=== PATIENT | male | born 1945 | race Caucasian/White ===

== ENCOUNTER 2016-10-03 12:38 | Day surgery (SDC) | payer MEDICARE, OTHER ==
--- NOTE | ~2016-10-03 | EGD ---
EGD REPORT [facility] [address] [address] NAME: SHAILA MOJICA : 43 [place]US : [place] [facility] [place] [id number] AGE: 71 ADM/REG DATE : 10/03/16 MR#: [id number] REPORT SERV DATE: 10/03/16 DICTATED BY: RITCHIE BOWDEN DATE: 10/03/16 REPORT STATUS : Draft TRANSCRIBED BY: [employer] DATE: 10/03/16 [facility] Patient Name: Shaila Mojica Date of : 1945 Attending MD: RITCHIE BOWDEN MD Procedure Date No Time: 10/03/2016 Procedure: Upper GI endoscopy Indications: Dysphagia, Gastro-esophageal reflux disease Referring MD: Jenise Boo Medicines: See the Anesthesia note for documentation of the administered medications Complications: No immediate complications. Procedure: Pre-Anesthesia Assessment: - ASA Grade Assessment: III - A patient with severe systemic disease. After obtaining informed consent, the endoscope was passed under direct vision. Throughout the procedure, the patient's blood pressure, pulse, and oxygen saturations were monitored continuously. The GIF [id number] was introduced through the mouth, and advanced to the second part of duodenum. The upper GI endoscopy was accomplished without difficulty. The patient tolerated the procedure well. Findings: Two small sessile polyps with were found in the duodenal bulb. Biopsies were taken with a cold forceps for histology. The entire examined stomach was normal. The cardia and gastric fundus were normal on retroflexion. A 3 cm from 37 to 40 cm hiatus hernia was present. The esophagus and gastroesophageal junction were examined with white light. 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 The maximum longitudinal extent of these esophageal mucosal changes was 8 cm in length. Mucosa was biopsied with a cold forceps for histology in 4 quadrants at intervals of 2 cm. The following biopsy specimens were sent to pathology: targeted biopsy at 35 cm from the incisors (1st Bottle), targeted biopsy at 33 cm from the incisors (2nd Bottle), targeted biopsy at 31 cm from the incisors (3rd Bottle), targeted biopsy at 29 cm from the incisors (4th Bottle) and targeted biopsy at 27 cm from the incisors (5th Bottle). A total of 5 specimen bottles were sent to pathology. 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 EGD REPORT [address] [place]. [address] NAME: SHAILA MOJICA : [birth year] STATUS : REG [facility]#: [id number] AGE: 71 ADM/REG DATE : 10/03/16 MR#: [id number] REPORT SERV DATE: 10/03/16 DICTATED BY: RITCHIE BOWDEN DATE: 10/03/16 REPORT STATUS : Draft TRANSCRIBED BY: [employer] DATE: 10/03/16 Impression: - Two duodenal polyps. Biopsied. - Normal stomach. - Hiatus hernia. 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 Biopsied. 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 The signs and symptoms of potential delayed complications were discussed with the patient. Return to normal activities tomorrow. Written discharge instructions were provided to the patient. - Continue present medications. - FOR YOUR BIOPSY RESULTS: Please go to [email or web address] and register to receive your results via the portal. Your biopsy results will be posted there in about 7 to 10 days. IF you do not see result in 10 days, call office. - Return to my office in 4 weeks. Procedure Code(s): --- Professional --- 61710, Esophagogastroduodenoscopy, flexible, transoral; with biopsy, single or multiple Diagnosis Code(s): --- Professional --- K31.7, Polyp of stomach and duodenum K22.9, Disease of esophagus, unspecified K44.9, Diaphragmatic hernia without obstruction or gangrene R13.10, Dysphagia, unspecified K21.9, Gastro-esophageal reflux disease without esophagitis CPT copyright 2013 [employer]. All rights reserved. The codes documented in this report are preliminary and upon it audit manager review may be revised to meet current compliance requirements. Ritchie Bowden MD RITCHIE BOWDEN MD 10/03/2016 3:14 PM This report has been signed electronically. Number of Addenda: 0 EGD REPORT [facility] [address] [place]. [address] NAME: SHAILA MOJICA : 43 [place] [facility] [place]#: [id number] AGE: 71 ADM/REG DATE : 10/03/16 MR#: [id number] REPORT SERV DATE: 10/03/16 DICTATED BY: RITCHIE BOWDEN DATE: 10/03/16 REPORT STATUS : Draft TRANSCRIBED BY: [employer] DATE: 10/03/16 Note Initiated On: 10/03/2016 2:44 PM Scope Withdrawal Time 0 hours 0 minutes 0 seconds [address] [place] [address]
[~2016-10-03 12:38] MED LIST: AMARYL1 MG PO; COZ25 PO; EFFIENT10 PO; FISH-EPA1000 MG PO; GLUCCHONDR PO; GLUCOPHAGE1000 MG PO; LIPITOR20 PO; LOP25 PO; LORAZEPAM; PLAVIX PO; VITC500 PO
== END 2016-10-03 23:59 | disposition home or self-care (01) ==
LOC: DMU 12:38
PROVIDERS: Internal Medicine Gastroenterology
PROC: 0DB18ZX Excision of Upper Esophagus, Via Natural or Artificial Opening Endoscopic, Diagnostic (ICD-10-PCS; 2016-10-03)
PROC: 0DB58ZX Excision of Esophagus, Via Natural or Artificial Opening Endoscopic, Diagnostic (ICD-10-PCS; 2016-10-03)
PROC: 0DB98ZX Excision of Duodenum, Via Natural or Artificial Opening Endoscopic, Diagnostic (ICD-10-PCS; principal; 2016-10-03 15:00)
DX: K20.9 Esophagitis, unspecified (principal); K44.9 Diaphragmatic hernia without obstruction or gangrene; K22.8 Other specified diseases of esophagus; I25.10 Atherosclerotic heart disease of native coronary artery without angina pectoris; Q40.2 Other specified congenital malformations of stomach; I25.2 Old myocardial infarction; Z95.5 Presence of coronary angioplasty implant and graft; Z98.890 Other specified postprocedural states; E11.9 Type 2 diabetes mellitus without complications; E78.00 Pure hypercholesterolemia, unspecified
CPT/HCPCS: 82962; 88305